=== PATIENT | female | born 1985 | race Caucasian/White ===

== ENCOUNTER 2017-05-13 01:10 | Emergency (ER) | END 2017-05-13 01:21 | disposition left against medical advice (07) ==

== ENCOUNTER 2018-05-08 21:26 | Inpatient (IN) | payer OTHER ==
[~2018-05-08] VITALS: Ht 170.2 cm; Wt 149.1 kg
[~2018-05-08 21:26] MED LIST: ALBU8.5H8 INH; BACTDS PO; CEPH500C PO; GUAI-95 PO; METF500T24 PO
[2018-05-08 21:55] VITALS: BP 131/81; PULSE 87; RESP 18
[2018-05-08] MEDS ORDERED: PREN-19 PO (22:01)
[2018-05-08] MEDS ORDERED: GLYB5TAB3 PO (22:01)
[2018-05-08] MEDS ORDERED: MISOPROSTOL 200 MCG TAB PR PRN (23:00)
[2018-05-08] MEDS ORDERED: LIDOCAINE 1% (MPF) 30 ML INJ INJ PRN (23:00)
[2018-05-08] MEDS ORDERED: CARBOPROST 250 MCG INJ IM PRN (23:00)
[2018-05-08] MEDS ORDERED: OXYTOCIN 30 UNITS/LR 500 ML IV SCH ×2 (23:00)
[2018-05-08] MEDS ORDERED: METHYLERGONOVINE 0.2 MG INJ IM PRN (23:00)
[2018-05-08] MEDS ORDERED: MINERAL OIL LIGHT 10 ML VIAL TOP ONE (23:00)
[2018-05-08] MEDS ORDERED: OXYTOCIN 30 UNITS/LR 500 ML IV PRN (23:00)
[2018-05-08] MEDS ORDERED: BUTORPHANOL 1 MG INJ IV PRN (23:00)
[2018-05-08] MEDS ORDERED: BUTORPHANOL 2 MG INJ IV PRN (23:00)
[2018-05-09] MEDS: LACTATED RINGER'S 1,000 ML IV PRN ×3 (00:47→03:06)
--- NOTE | 2018-05-09 00:49 | TRIAGE ---
OB Triage Datetime Report Generated by CPN: 05/09/2018 00:49 Datetime: 05/09/2018 00:40 Time of Arrival: 05/09/2018 23:55 EGA: 37.6 Arrived By: Wheelchair Arrived From: Emergency Dept Datetime: 05/09/2018 00:30 Assessment Type: Admission Assessment Vaginal Bleeding: None Maternal Assessment Level of Consciousness: Fully Conscious DTR's/Clonus: DTRs 2+; No Clonus Headache: Denies Blurred Vision: No Respiratory Effort: Unlabored; Regular Rhythm; Equal Expansion Breath Sounds, Left: Clear and Equal Breath Sounds, Right: Clear and Equal Nausea/Vomiting: Denies RUQ Epigastric Pain: Denies Lower Extremities Edema: None Degree: None Upper Extremities Edema: None Degree: None Facial Edema: None Fall Risk Assessment History of Falling: (0) No Secondary Diagnosis: (0) No Ambulatory Aid: (0) Bedrest/Nurse Assist Gait: (0) Normal/Bedrest/Immobile Mental Status: (0) Oriented to Own Ability Labor Evaluation Frequency: 2-4 Duration (sec)2399: 40-60 Pattern: Normal: <= 5 Contractions in 10 Minutes Resting Tone [place]: Relaxed Pain Assessment Pain Scale: 8 Pain Presence: Intermittent Pain Type: Contraction Pain Location: Abdomen; Back Datetime: 05/09/2018 00:15 Stage of : Labor Vaginal Exam Dilatation (cms): 4.0 Effacement (%): 90 Station: -2 Exam By: NORMA ROSE Datetime: 05/08/2018 23:21 Monitor Mode: External US FHR Baseline Changes: No Baseline Change Variability: Moderate 6-25 bpm Accelerations: 15X15 Vaginal Exam Dilatation (cms): 3.0 Effacement (%): 80 Station: -3 Exam By: Matt Salinas Membrane Status: Ruptured Amniotic Fluid Color: Clear Amniotic Fluid Amount: Large Amniotic Fluid Odor: Normal Vaginal Bleeding: None Pool: Positive Cervix, Consistency: Soft Cervix, Position: Anterior Presentation 'A': Cephalic Datetime: 05/08/2018 22:52 Membrane Status: Ruptured Datetime: 05/08/2018 22:30 Stage of : OB Triage Labor Evaluation Frequency: 10 Monitor Mode: External Quality: Mild Pattern: Normal: <= 5 Contractions in 10 Minutes Resting Tone [place]: Relaxed Heart Rate FHR Baseline Rate: 115 Monitor Mode: External US FHR Baseline Changes: No Baseline Change Variability: Moderate 6-25 bpm Accelerations: 15X15 Decelerations: None Category: Category I Vaginal Exam Dilatation (cms): 2.0 Effacement (%): 80 Station: -3 Exam By: E Brad Membrane Status: Ruptured Vaginal Bleeding: None Cervix, Consistency: Soft Cervix, Position: Anterior Presentation 'A': Cephalic Datetime: 05/08/2018 21:41 Stage of : OB Triage Maternal Assessment Level of Consciousness: Fully Conscious Headache: Denies Blurred Vision: No Respiratory Effort: Unlabored Nausea/Vomiting: Denies RUQ Epigastric Pain: Denies Facial Edema: None Monitor Mode: External Resting Tone [place]: Relaxed Monitor Mode: External US Comments: FHT 130 Pain Assessment Pain Scale: 0 Pain Presence: None/Denies Pain Type: N/A Datetime: 05/08/2018 13:02 Time of Arrival: 05/08/2018 21:20 EGA: 37.5 Arrived By: Wheelchair Arrived From: Home Chief Complaint: c/o leaking fluid at 2045 Movement: Present Contractions: Denies/Absent Rupture of Membranes: Unsure Vaginal Bleeding: None Vaginal Discharge: Present Recent Sexual Intercouse: Denies Abdominal Trauma: Not Applicable Patient Complaints: Other Additional Patient Complaints: 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
[2018-05-09] MEDS ORDERED: ACCU-CHEK XX SCH (01:00)
[2018-05-09] MEDS ORDERED: OXYTOCIN 30 UNITS/LR 500 ML IV SCH ×2 (04:20)
[2018-05-09] MEDS ORDERED: LACTATED RINGER'S 1,000 ML IV* SCH (04:20)
[2018-05-09] MEDS ORDERED: MISOPROSTOL 200 MCG TAB PR PRN (04:30)
[2018-05-09] MEDS ORDERED: LANOLIN HPA 1 PKT TOP PRN (04:30)
[2018-05-09] MEDS ORDERED: HYDROCODONE/APAP (5/325) TAB PO PRN (04:30)
[2018-05-09] MEDS ORDERED: OXYTOCIN 30 UNITS/LR 500 ML IV PRN (04:30)
[2018-05-09] MEDS ORDERED: CARBOPROST 250 MCG INJ IM PRN (04:30)
[2018-05-09] MEDS ORDERED: METHYLERGONOVINE 0.2 MG INJ IM PRN (04:30)
--- NOTE | 2018-05-09 04:30 | LDN ---
Date/Time of Note Date/Time of Note DATE: 05/09/18 TIME: 04:28 Delivery Summary of a viable baby girl weighing 4425 grams or 9# 12 oz, 20" long, and with Apgars of 8/9. Weeks of Gestation 37w 6d Placenta Delivered: Spontaneously Meconium: none Episiotomy: No Perineal laceration: 2 Laceration repair: 2nd degree perineal laceration repaired with 2-0 chromic. Anesthesia type: Local Estimated blood loss: 300 Sponge & Needle done & correct: Yes All needle counts correct: Yes Any foreign bodies felt in the: No (vagina) Delivery Information Sex Infant Sex: female Apgars 1 Minute: 8 Suctioning Nose & mouth suctioned at maddie: Yes Delee suction performed: No Umbilical Cord Umbilical cord with: 3 Vessels Cord presentations: no nuchal cord Cord Blood was obtained: Yes Mother & Baby Disposition Disposition Mom & Baby to Maternity; Good: Yes Baby to NICU: No PRERNA ROBLES MD May 09, 2018 04:30
--- NOTE | 2018-05-09 04:37 | HP ---
Date/Time of Note Date/Time of Note DATE: 05/09/18 TIME: 04:31 OB - History Hx of Present Free Text/Dictation 32 y.o. GH6 with an IUP at 37w 6d came in with SROM and in labor and initial exam was 2-3 cm/ 80% effaced. Chief Complaint: labor Estimated Due Date: May 24, 2018 : 6 Para: 1 Spontaneous : 4 Care: Good Care Ultrasounds: Normal mid trimester US (per pt) Obstetrical Complications: Other (Type 2 DM) Medical Complications: None Other Concerns: PSHx: Cholecystectomy. NKDA. Past Family/Social History * Past Medical, Surgical, Family and Obstetric Histories reviewed with pt as records were not available. Blood Type: O+ Rubella: immune RPR/VDRL: Negative GBS Status: Negative HBsAG: Negative OB Admission Exam Vital Signs Vital Signs Vital Signs Date Temp Pulse Resp B/P (MAP) Pulse Ox O2 O2 Flow FiO2 Time Delivery Rate 05/08/18 97.9 87 18 131/81 Room Air 21:55 (98) Physical Exam HEENT: WNL Heart: Rhythm Normal Lungs: Clear Abdomen: Abnormal (obese) Extremities: Normal Reflexes: Normal Cervical Dilatation: 3cm Effacement: 75% Station: -2 Membranes: Ruptured Amniotic Fluid: Clear Heart Rate: 140's Accelerations: Accelerations Present Decelerations: No Decelerations Varibility: Moderate Contractions on Admission: 6-10 Minutes Apart Intensity: Moderate Last 72 hours Lab Results CBC & BMP 05/08/18 23:55 Liver Function Test 05/08/18 23:55 Alanine Aminotransferase (ALT/SGPT) 17 Albumin 3.4 Alkaline Phosphatase 200 H Aspartate Amino Transf (AST/SGOT) 17 Direct Bilirubin 0.00 Total Protein 6.7 OB Assessment/Plan Reason for admission: rupture of membranes Other Assessment: Type 2 DM Plan: Expectant Management Induction Method: per Pitocin Protocol (augmentation as needed.) PRERNA ROBLES MD May 09, 2018 04:37
[2018-05-09] MEDS: IBUPROFEN 600 MG TAB PO SCH ×4 (05:06→23:24)
[2018-05-09] MEDS: ACCU-CHEK XX SCH ×8 (06:00→20:23)
[2018-05-09 06:45] VITALS: BP 113/56; PULSE 77; RESP 18
[2018-05-09 08:30] VITALS: BP 122/65; PULSE 68; RESP 18
[2018-05-09] MEDS: metFORMIN 500 MG TAB PO SCH (09:28)
[2018-05-09 12:00] VITALS: BP 120/65; PULSE 69; RESP 18
[2018-05-09 16:00] VITALS: BP 131/79; PULSE 72; RESP 18
[2018-05-09 19:10] VITALS: BP 107/55; PULSE 69; RESP 18
[2018-05-09 19:25] VITALS: BP 130/61; PULSE 76; RESP 18
[2018-05-10 03:50] VITALS: BP 129/78; PULSE 68; RESP 18
[2018-05-10] MEDS: IBUPROFEN 600 MG TAB PO SCH ×4 (05:39→23:25)
--- NOTE | 2018-05-10 06:59 | DELSUM ---
Delivery Summary A-C Datetime Report Generated by CPN: 05/10/2018 06:59 DELIVERY PERSONNEL Residential Finish Carpenter: Noa Day MATERNAL INFORMATION Delivery Anesthesia: Local Medications in Delivery: Pitocin 30 units in LR, Lidocaine Delivery QBL (ml): 386 Placenta Cultured: No Maternal Complications: Other Other Maternal Complications: TYPE 2 DIABETES LABOR SUMMARY EDC: 05/24/2018 00:00 No. Babies in Womb: 1 Attempted: No Labor Anesthesia: None LABOR INFORMATION Reason for Induction: Not Applicable Onset of Labor: 05/08/2018 21:00 Complete Dilatation: 05/09/2018 03:43 Oxytocin: N/A Group B Beta Strep: Negative Antibiotics # of Doses: 0 Steroids Given: None Reason Steroids Not Administered: Not Applicable MEMBRANES Membranes Rupture Method: Spontaneous Rupture of Membranes: 05/08/2018 21:00 Length of Rupture (hr): 6.75 Amniotic Fluid Color: Clear Amniotic Fluid Amount: Moderate Amniotic Fluid Odor: Normal STAGES OF LABOR Stage 1 hr: 6 Stage 1 min: 43 Stage 2 hr: 0 Stage 2 min: 2 Stage 3 hr: 0 Stage 3 min: 5 Total Time in Labor hr: 6 Total Time in Labor min: 50 VAGINAL DELIVERY Episiotomy: None Laceration Extension: Second Degree Laceration Type: Perineal Laceration Repair: Yes Initial Vag Sponge Count: 10 Final Vag Sponge Count: 10 Initial Vag Sharps Count: 1 Final Vag Sharps Count: 2 Sponge Count Correct: Yes; Vaginal Sweep Performed Sharps Count Correct: Yes BABY A INFORMATION Delivery Date/Time: 05/09/2018 03:45 Method of Delivery: Vaginal Born in Route : No : N/A Forceps: N/A Vacuum Extraction: N/A Shoulder Dystocia : No SHOULDER DYSTOCIA BABY A Delivery Date/Time: 05/09/2018 03:45 PRESENTATION/POSITION BABY A Presentation: Cephalic Cephalic Presentation: Vertex Breech Presentation: N/A PLACENTA INFORMATION BABY A Placenta Delivery Time : 05/09/2018 03:50 Placenta Method of Delivery: Expressed Placenta Status: Delivered SCORES BABY A Heart Rate 1 min: >100 bpm Resp Effort 1 min: Good Cry Reflex Irritability 1 min: Cough/Sneeze/Pulls Away Muscle Tone 1 min: Active Motion Color 1 min: Blue/Pale Resuscitation Effort 1 min: Tactile Stimulation SCORE 1 MIN: 8 Heart Rate 5 min: >100 bpm Resp Effort 5 min: Good Cry Reflex Irritability 5 min: Cough/Sneeze/Pulls Away Muscle Tone 5 min: Active Motion Color 5 min: Body Pooler, Extremit Blue Resuscitation Effort 5 min: N/A SCORE 5 MIN: 9 INFANT INFORMATION BABY A Gestational Age at Delivery: 37.6 Gestational Status: Early Term- 37- 38.6 Weeks Outcome : Liveborn Condition : Stable Infant Sex: Female IDENTIFICATION/MEDS BABY A ID Band Number: [id number] Sensor Applied: Yes Sensor Number: [id number] Sensor Location : Cord Clamp Vitamin K Given : Not Given Erythromycin Given: Not Given WEIGHT/LENGTH BABY A Birthweight (gm): 4425 Weight (lb): 9 Infant Weight (oz): 12 Infant Length (in): 20.00 Length (cm): 50.80 CORD INFORMATION BABY A No. Cord Vessels: 3 Nuchal Cord : N/A Cord Blood Taken: Yes Suction: Mouth; Nose ASSESSMENT BABY A Infant Complications: None Physical Findings at Delivery: Molding of the Head Infant Respirations: Appears Normal Pediatric Audiologist/ALS Called : No Care By: NORMA Urena Transferred To: Remains with Mother
[2018-05-10 08:10] VITALS: BP 120/77; PULSE 71; RESP 20
[2018-05-10] MEDS: ACCU-CHEK XX SCH ×8 (08:55→21:01)
[2018-05-10] MEDS: metFORMIN 500 MG TAB PO SCH (09:35)
[2018-05-10 15:29] VITALS: BP 125/70; PULSE 80; RESP 18
--- NOTE | 2018-05-10 19:07 | DS ---
Date/Time of Note Date/Time of Note DATE: 05/10/18 TIME: 19:03 Obstetrical Discharge Record Final Diagnosis Final Diagnosis: Term delivered Vaginal Delivery Obstetrical Delivery: Spontaneous Complications Augmentation: Yes Induction: No Rupture of Membranes: No Condition on Discharge Physical Assessment Voiding: Yes Bowel Movement: Yes Breast: Soft, non-tender, Filling Fundus: Firm Abdomen and Incision: soft, not tender Calf Tenderness: No Patient Condition: Good CLAU BRIDGES MD May 10, 2018 19:06
[2018-05-10 19:20] VITALS: BP 112/65; PULSE 75; RESP 18
[2018-05-11 03:58] VITALS: BP 124/72; PULSE 62; RESP 18
[2018-05-11] MEDS: IBUPROFEN 600 MG TAB PO SCH ×2 (05:29→12:08)
[2018-05-11 08:05] VITALS: BP 113/60; PULSE 75; RESP 17
[2018-05-11] MEDS: metFORMIN 500 MG TAB PO SCH (08:38)
[2018-05-11] MEDS ORDERED: DIPHTH/TET/ACEL PERTUSS (ADULT) 0.5 ML VIAL IM* ONE (09:00)
--- NOTE | 2018-05-11 12:11 | DELSUM ---
Delivery Summary A-C Datetime Report Generated by CPN: 05/11/2018 12:11 DELIVERY PERSONNEL Well Logging Captain: Noa Day MATERNAL INFORMATION Delivery Anesthesia: Local Medications in Delivery: Pitocin 30 units in LR, Lidocaine Delivery QBL (ml): 386 Placenta Cultured: No Maternal Complications: Other Other Maternal Complications: TYPE 2 DIABETES LABOR SUMMARY EDC: 05/24/2018 00:00 No. Babies in Womb: 1 Attempted: No Labor Anesthesia: None LABOR INFORMATION Reason for Induction: Not Applicable Onset of Labor: 05/08/2018 21:00 Complete Dilatation: 05/09/2018 03:43 Oxytocin: N/A Group B Beta Strep: Negative Antibiotics # of Doses: 0 Steroids Given: None Reason Steroids Not Administered: Not Applicable MEMBRANES Membranes Rupture Method: Spontaneous Rupture of Membranes: 05/08/2018 21:00 Length of Rupture (hr): 6.75 Amniotic Fluid Color: Clear Amniotic Fluid Amount: Moderate Amniotic Fluid Odor: Normal STAGES OF LABOR Stage 1 hr: 6 Stage 1 min: 43 Stage 2 hr: 0 Stage 2 min: 2 Stage 3 hr: 0 Stage 3 min: 5 Total Time in Labor hr: 6 Total Time in Labor min: 50 VAGINAL DELIVERY Episiotomy: None Laceration Extension: Second Degree Laceration Type: Perineal Laceration Repair: Yes Initial Vag Sponge Count: 10 Final Vag Sponge Count: 10 Initial Vag Sharps Count: 1 Final Vag Sharps Count: 2 Sponge Count Correct: Yes; Vaginal Sweep Performed Sharps Count Correct: Yes BABY A INFORMATION Delivery Date/Time: 05/09/2018 03:45 Method of Delivery: Vaginal Born in Route : No : N/A Forceps: N/A Vacuum Extraction: N/A Shoulder Dystocia : No SHOULDER DYSTOCIA BABY A Delivery Date/Time: 05/09/2018 03:45 PRESENTATION/POSITION BABY A Presentation: Cephalic Cephalic Presentation: Vertex Breech Presentation: N/A PLACENTA INFORMATION BABY A Placenta Delivery Time : 05/09/2018 03:50 Placenta Method of Delivery: Expressed Placenta Status: Delivered SCORES BABY A Heart Rate 1 min: >100 bpm Resp Effort 1 min: Good Cry Reflex Irritability 1 min: Cough/Sneeze/Pulls Away Muscle Tone 1 min: Active Motion Color 1 min: Blue/Pale Resuscitation Effort 1 min: Tactile Stimulation SCORE 1 MIN: 8 Heart Rate 5 min: >100 bpm Resp Effort 5 min: Good Cry Reflex Irritability 5 min: Cough/Sneeze/Pulls Away Muscle Tone 5 min: Active Motion Color 5 min: Body [place], Extremit Blue Resuscitation Effort 5 min: N/A SCORE 5 MIN: 9 INFANT INFORMATION BABY A Gestational Age at Delivery: 37.6 Gestational Status: Early Term- 37- 38.6 Weeks Outcome : Liveborn Condition : Stable Infant Sex: Female IDENTIFICATION/MEDS BABY A ID Band Number: [id number] Sensor Applied: Yes Sensor Number: [id number] Sensor Location : Cord Clamp Vitamin K Given : Not Given Erythromycin Given: Not Given WEIGHT/LENGTH BABY A Birthweight (gm): 4425 Weight (lb): 9 Infant Weight (oz): 12 Infant Length (in): 20.00 Length (cm): 50.80 CORD INFORMATION BABY A No. Cord Vessels: 3 Nuchal Cord : N/A Cord Blood Taken: Yes Suction: Mouth; Nose ASSESSMENT BABY A Infant Complications: None Physical Findings at Delivery: Molding of the Head Infant Respirations: Appears Normal Sewage Plant Operator/ALS Called : No Care By: NORMA Urena Transferred To: Remains with Mother
[2018-05-11 16:45] VITALS: BP 128/65; PULSE 70; RESP 16
--- NOTE | 2018-05-15 21:51 | NSTRPT ---
NST Information Datetime Report Generated by CPN: 05/15/2018 21:51 Datetime: 05/08/2018 12:58 NST Information EGA: 37.5 Test Number: 10 Time on Monitor: 05/08/2018 13:20 Time off Monitor: 05/08/2018 13:41 NST Duration (Min): 21 Reason for NST: Diabetes Mellitus; Other Reason for NST Other: Type II-Metformin Test and Monitor Explained: Monitor Explained; Test Explained; Verbalized Understanding Pulse: 108 Resp: 18 SBP: 108 DBP: 68 Test Evaluation NST Interventions: None Patient States Movement: Present Contraction Frequency: x1/60/mild/pain level 0 FHR Baseline : 140 Variability: Moderate 6-25bpm Accelerations: 15X15 Decelerations: None FHR Category: Category I NST Results: Reactive Comments: To u/s FLORENCIA 16.0 cm cephaliC FBS 77 Pulse oximeter applied due to maternal tachycardie-pulse 90-102 , o2 sat 97-99%. Denies dizziness, SOB,being lightheaded or fainting. Electronically Signed By E-Signature: with User ID: [id number] Datetime: 05/04/2018 13:35 NST Information EGA: 37.1 Datetime: 05/04/2018 13:30 NST Information EGA: 37.1 NST Duration (Min): 26 Datetime: 05/01/2018 13:12 NST Information EGA: 36.5 NST Duration (Min): 23 Datetime: 04/25/2018 08:13 NST Information EGA: 35.6 NST Duration (Min): 46 Datetime: 04/21/2018 09:20 NST Information EGA: 35.2 NST Duration (Min): 27 Datetime: 04/19/2018 08:51 NST Information EGA: 35.0 NST Duration (Min): 31 Datetime: 04/10/2018 14:06 NST Information EGA: 33.5 NST Duration (Min): 29 Datetime: 04/06/2018 13:15 NST Information EGA: 33.1 NST Duration (Min): 37 Datetime: 04/04/2018 13:06 NST Information EGA: 32.6 NST Duration (Min): 21 Datetime: 03/28/2018 13:29 NST Information EGA: 31.6 Datetime: 03/28/2018 13:10 NST Duration (Min): 29
== END 2018-05-11 17:10 | disposition home or self-care (01) | DRG 807 ==
LOC: OBT 21:26 → L-D 21:27 → OBT 22:40 → L-D 22:40 → MS1 05-09 06:49 → MERGE 05-24 21:19
PROVIDERS: ADMIT Specialist; ATTEND Specialist
PROC: 10E0XZZ Delivery of Products of Conception, External Approach (ICD-10-PCS; principal; 2018-05-09)
PROC: 3E033VJ Introduction of Other Hormone into Peripheral Vein, Percutaneous Approach (ICD-10-PCS; 2018-05-09)
DX: O70.1 Second degree perineal laceration during delivery (principal); Z37.0 Single live birth; Z3A.37 37 weeks gestation of pregnancy
CPT/HCPCS: 80053; 82962; 85025; 85610; 85730; 86592; 86850; 86900; 86901; 87340; 90715; G0463; J0595; J2590; J7120